=== PATIENT | female | born 2000 | race Caucasian/White ===

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

== ENCOUNTER 2021-07-03 18:17 | Emergency (ER) | payer OTHER ==
[~2021-07-03 18:17] MED LIST: BACTRIM DS TAB1 EACH PO; ERYTHROMYCIN OP1 GM EYERT; KEFLEX CAP 500500 MG PO; PRENATAL VITAM1 EAC3 PO; ZANTAC150 MG PO; ZOFRAN ODT 4 MG4 MG PO
[2021-07-03] MEDS ORDERED: BROMFED DM COU473 ML PO (20:42)
[2021-07-03] MEDS ORDERED: ONDANSETRON ODT4 MG PO (20:48)
== END 2021-07-03 20:50 | disposition home or self-care (01) ==
LOC: ER1 18:17
DX: U07.1 COVID-19 (principal); F17.210 Nicotine dependence, cigarettes, uncomplicated
CPT/HCPCS: 0240U; 99283

== ENCOUNTER 2022-02-02 21:01 | Emergency (ER) | payer OTHER ==
[~2022-02-02 21:01] MED LIST changes: +BROMFED DM COU473 ML PO; +ONDANSETRON ODT4 MG PO
[2022-02-03] MEDS ORDERED: ZYRTEC10 MG PO (00:47)
[2022-02-03] MEDS ORDERED: FLONASE 0.05% N16 GM (00:47)
[2022-02-03] MEDS ORDERED: DELSYM30 MG/5 ML PO (00:47)
== END 2022-02-03 00:55 | disposition home or self-care (01) ==
LOC: ER1 21:01
DX: J06.9 Acute upper respiratory infection, unspecified (principal); F17.200 Nicotine dependence, unspecified, uncomplicated; Z20.822 Contact with and (suspected) exposure to COVID-19
CPT/HCPCS: 99283; U0002

== ENCOUNTER 2022-02-03 13:02 | Emergency (ER) | payer OTHER ==
[~2022-02-03 13:02] MED LIST changes: +DELSYM30 MG/5 ML PO; +FLONASE 0.05% N16 GM; +ZYRTEC10 MG PO
[2022-02-03 14:49] LABS: HEMOGLOBIN 13.8 gm/dl (12.3-15.3); RED BLOOD COUNT 5.05 M/UL (4.00-5.10); WHITE BLOOD COUNT 12.5 K/UL (4.5-11.0)
[2022-02-03 15:17] LABS: BUN/CREATININE RATIO 11 (0-10)
== END 2022-02-03 17:34 | disposition home or self-care (01) ==
LOC: ER1 13:02
PROVIDERS: Physician Assistant
DX: R07.9 Chest pain, unspecified (principal); J02.9 Acute pharyngitis, unspecified; R40.2410 Glasgow coma scale score 13-15, unspecified time; Z20.822 Contact with and (suspected) exposure to COVID-19
CPT/HCPCS: 71045; 80053; 82550; 82553; 84484; 84703; 85025; 87081; 87880; 99285; U0002

== ENCOUNTER 2022-02-08 22:43 | Emergency (ER) | payer OTHER ==
[2022-02-09 00:05] LABS: HEMOGLOBIN 12.7 gm/dl (12.3-15.3); RED BLOOD COUNT 4.73 M/UL (4.00-5.10); WHITE BLOOD COUNT 9.6 K/UL (4.5-11.0)
[2022-02-09 00:36] LABS: BUN/CREATININE RATIO 19 (0-10)
== END 2022-02-09 03:55 | disposition home or self-care (01) ==
LOC: ER1 22:43
PROVIDERS: Physician Assistant Medical
DX: R07.89 Other chest pain (principal); F17.210 Nicotine dependence, cigarettes, uncomplicated
CPT/HCPCS: 71045; 80053; 82550; 82553; 84484; 85025; 85379; 93005; 99285